=== PATIENT | female | born 1975 | race Caucasian/White ===

== ENCOUNTER → 2017-05-05 | Outpatient (CLI) | payer BC ==
[~2017-05-05] MED LIST: FRRS300 PO; OXYC-57 PO; PRENTAB26 PO
[2017-05-05 12:45] LABS: ALB/GLOB RATIO 0.9 (0.9-2); ALKALINE PHOSPHATASE 59 U/L (45-117); ALT/SGPT 29 U/L (12-78); AST/SGOT 14 U/L (15-37); BLOOD UREA NITROGEN 12 mg/dl (7-18); BUN/CREATININE RATIO 14.6 (10-20); CALCIUM 9.2 mg/dl (8.5-10.1); CARBON DIOXIDE 26 mmol/L (21-32); CHLORIDE 106 mmol/L (98-107); CHOLESTEROL 247 mg/dl (0-200); CREATININE 0.85 mg/dl (0.60-1.20); GLUCOSE 102 mg/dl (70-99); POTASSIUM 4.3 mmol/L (3.5-5.1); SODIUM 139 mmol/L (136-145); TRIGLYCERIDES 132 mg/dl (0-150); VERY LOW DENSITY LIPOPROT CALC 26 mg/dl
[2017-05-05 12:46] LABS: CHOLESTEROL/HDL RATIO 5.4; HDL CHOLESTEROL 46 mg/dl; LDL CHOLESTEROL CALCULATED 175 mg/dl
[2017-05-05 12:47] LABS: PROLACTIN 8.75 ng/mL
[2017-05-05 13:10] LABS: ESTIMATED AVERAGE GLUCOSE 126 mg/dl; HA1C FLAG Normal (Normal)
== END | disposition home or self-care (01) ==
LOC: C.LABBFT 09:00
PROVIDERS: ATTEND Nurse Practitioner
DX: Z00.00 Encounter for general adult medical examination without abnormal findings (principal); E78.5 Hyperlipidemia, unspecified; R73.03 Prediabetes; N64.52 Nipple discharge

== ENCOUNTER → 2017-05-16 | Outpatient (CLI) | payer BC ==
--- NOTE | 2017-05-17 07:45 | MAMMOGRAPHY REPORT ---
BILATERAL DIGITAL DIAGNOSTIC MAMMOGRAM TOMOSYNTHESIS WITH CAD AND TARGETED BILATERAL ULTRASOUND: 2016 CLINICAL HISTORY: 41-year-old woman presents with approximate 3 month history of bilateral nipple dis charge that is nonspontaneous and approximately 1-2 drops are elicited at a time. Color is clear on the right and grayish on the left. No palpable mass, skin changes or focal pain. No family history of breast cancer. Baseline exam. TECHNIQUE: Bilateral CC and MLO 2-D and tomosynthesis images, spot magnification CC and ML views of e ach subareolar breast were also obtained. Current study was also evaluated with a Computer Aided Det ection (CAD) system. COMPARISON: No prior exams were available for comparison. BREAST COMPOSITION: There are scattered areas of fibroglandular density in both breasts. FINDINGS: There is nodularity throughout the lateral left breast, anterior through posterior depth, w ith partially circumscribed masses identified. No associated architectural distortion or microcalcif ication. No suspicious mass, focal area of architectural distortion or suspicious calcifications are seen in the left breast. On the spot magnification views, no microcalcifications are seen in the hall bareolar aspect of either breast. Targeted ultrasound was performed in the periareolar aspect of each breast, and also throughout the l ateral right breast. In the periareolar and retroareolar aspect of each breast on ultrasound, normal fibroglandular tissue is seen without a discrete solid or cystic mass or intraductal mass. In the l ateral right breast, several subcentimeter anechoic benign simple cysts are identified, the largest i n the 9:00 axis, 4 cm from the nipple measures 5.3 x 2.9 x 5.5 mm. Smaller cysts are seen in the 9:0 0, 10:00 and 11:00 axes. IMPRESSION: ACR-BI-RADS CATEGORY 3: PROBABLY BENIGN, TARGETED ULTRASOUND ACR-BI-RADS CATEGORY 3: PRO BABLY BENIGN 1. There is no mammographic or sonographic abnormality to explain the bilateral nonspontaneous nippl e discharge. Therefore, clinical follow-up is recommended and sampling/cytology of the fluid may be useful. 2. There is nodularity throughout the lateral right breast, with several benign simple cysts identif ied on ultrasound. These findings most likely represent benign fibrocystic changes, but given that t he nodularity was identified on a baseline exam and there is no significant nodularity in the contral ateral left breast, a short interval follow-up diagnostic right mammogram including tomosynthesis [place] [facility] and possible repeat ultrasound is recommend to ensure stability in 6 months. These results and recommendations were discussed with the patient at the time of the exam. Approximately 10% of breast cancers are not detected with mammography. A negative mammographic report should not delay biopsy if a clinically suggestive mass is present. Ирина Ledesma M.D. ay/:05/16/2017 14:55:53 Memory Care Director: Hola OSHEA(R)(Alena), [facility] [address] letter sent: Follow Up Recommended 3 BI-RADS Code: ACR-BI-RADS Category 3: Probably Benign Ultrasound BI-RADS: ACR-BI-RADS Category 3: Pr obably Benign
== END | disposition home or self-care (01) ==
LOC: C.MAMM 13:48
PROVIDERS: ATTEND Nurse Practitioner
DX: N64.52 Nipple discharge (principal); N64.89 Other specified disorders of breast; N60.01 Solitary cyst of right breast

== ENCOUNTER → 2018-05-28 | Outpatient (CLI) | payer BC | END | disposition home or self-care (01) | LOC: C.LABBFT 08:41 | PROVIDERS: ATTEND Nurse Practitioner | DX: Z00.00 Encounter for general adult medical examination without abnormal findings (principal) ==